=== PATIENT | male | born 1965 | race African-American/Black ===

== ENCOUNTER 2016-09-10 18:15 | Emergency (ER) | payer SELFPAY ==
[2016-09-10] MEDS ORDERED: CYCLOBENZAPRINE 10 MG TAB ONE (20:52)
== END 2016-09-10 20:55 | disposition home or self-care (01) ==
LOC: ER 18:15
DX: S29.012A Strain of muscle and tendon of back wall of thorax, initial encounter (principal); S39.012A Strain of muscle, fascia and tendon of lower back, initial encounter; N39.0 Urinary tract infection, site not specified
CPT/HCPCS: 36415; 71020; 72100; 80053; 81001; 83690; 85025; 87088